=== PATIENT | female | born 1965 | race Hispanic/Latino ===

== ENCOUNTER 2017-12-23 21:31 | Emergency (ER) | payer BC ==
[2017-12-23 22:58] LABS: BASOPHILS % (AUTO) 0.8 % (0.0-5.0); EOSINOPHILS % (AUTO) 0.8 % (0.0-8.0); HEMATOCRIT 42.9 % (36-48); LYMPHOCYTES % (AUTO) 17.7 % (21.0-51.0); MEAN CORPUSCULAR HEMOGLOBIN 29.3 pg (27.0-33.0); MEAN CORPUSCULAR HGB CONC 35.1 g/dL (32.0-36.0); MEAN CORPUSCULAR VOLUME 83.4 fL (79-99); MONOCYTES % (AUTO) 12.5 % (3.0-13.0); NEUTROPHILS % (AUTO) 68.2 % (40.0-77.0); NUCLEATED RED BLOOD CELLS 0.1 % (0.0-0.19); PLATELET COUNT (AUTO) 240 K/uL (130-400); RED BLOOD CELL COUNT(AUTO) 5.15 MIL/uL (4.00-5.50); RED CELL DISTRIBUTION WIDTH 14.1 % (11.0-15.5); WHITE BLOOD COUNT (AUTO) 9.4 K/uL (4.8-10.8)
[2017-12-23 22:59] LABS: POTASSIUM 3.9 mmol/L (3.5-5.1)
[2017-12-23 23:04] LABS: ALBUMIN 3.6 g/dL (3.5-5.0); BILIRUBIN,TOTAL 1.2 mg/dL (0.2-1.0); TOTAL PROTEIN, SERUM 8.5 g/dL (6.0-8.3)
[2017-12-23] MEDS ORDERED: ONDANSETRON HCL 4 MG/2 ML VIAL ONE (23:05)
[2017-12-23] MEDS ORDERED: SODIUM CHLORIDE 0.9% 1000ML 1,000 ML IV ONE (23:05)
[2017-12-23] MEDS ORDERED: MORPHINE SULFATE 2 MG/ML 1ML SYG ONE ×2 (23:06→23:31)
[2017-12-23] MEDS ORDERED: ISOVUE-370 50ML VIAL IV ONE (23:20)
== END 2017-12-24 01:18 | disposition home or self-care (01) ==
LOC: EDH 21:31
DX: L03.221 Cellulitis of neck (principal); L03.211 Cellulitis of face; K04.7 Periapical abscess without sinus; E11.9 Type 2 diabetes mellitus without complications; I10 Essential (primary) hypertension; Z90.710 Acquired absence of both cervix and uterus; Z98.890 Other specified postprocedural states; Z88.8 Allergy status to other drugs, medicaments and biological substances
CPT/HCPCS: 36415; 70491; 80053; 83605; 85025; 85651; 86141; 87040; 96361; 96374; 96375; 96376; 99285; J2405; J7030; Q9967

== ENCOUNTER 2021-08-06 12:46 | Inpatient (IN) | payer BC ==
[~2021-08-06] VITALS: Ht 162.6 cm; Wt 100.7 kg
[2021-08-06] MEDS ORDERED: NITROGLYCERIN 2 MG VIAL IV ONE (13:58)
[2021-08-06] MEDS ORDERED: HEPARIN 10,000 UNIT/10ML (1,000 UNIT/ML) VIAL ONE (13:58)
[2021-08-06] MEDS ORDERED: IOHEXOL-350 50ML VIAL IV ONE (13:58)
[2021-08-06] MEDS ORDERED: BIVALIRUDIN 250 MG/VIAL IV ONE (13:58)
[2021-08-06] MEDS ORDERED: LIDOCAINE HCL 400MG/20ML VIAL ONE (13:59)
[2021-08-06] MEDS ORDERED: IOHEXOL 350 MG/ML 100ML INFUS..BTL IV ONE (13:59)
[2021-08-06 14:18] VITALS: BP 195/58
[2021-08-06] MEDS ORDERED: FENTANYL CITRATE PF 50 MCG/1 ML 2ML VIAL ONE (14:18)
[2021-08-06] MEDS ORDERED: MIDAZOLAM HCL 1 MG/ML 2ML VIAL ONE (14:18)
[2021-08-06] MEDS ORDERED: AMLODIPINE 5 MG TAB PO STA (15:01)
[2021-08-06] MEDS ORDERED: HYDRALAZINE 20MG/ML VIAL IV PRN (15:30)
[2021-08-06] MEDS ORDERED: CLONIDINE HCL 0.1 MG TABLET PO PRN (15:30)
[2021-08-06] MEDS ORDERED: ONDANSETRON 4MG INJ IV PRN (16:00)
[2021-08-06] MEDS ORDERED: ACETAMINOPHEN 325 MG TAB PO PRN ×2 (16:00)
[2021-08-06] MEDS ORDERED: LACTULOSE 20 GM/30 ML UDCUP PO PRN (16:00)
[2021-08-06] MEDS: INSULIN HUMULIN R 100 UNIT/ML 3ML SQ SCH ×2 (16:30→20:19)
[2021-08-06] MEDS: LOSARTAN 100 MG TABLET PO SCH (17:45)
[2021-08-06 19:49] VITALS: BP 164/86
[2021-08-06] MEDS: FAMOTIDINE 20MG TAB PO SCH (20:30)
[2021-08-06 23:28] VITALS: BP 156/60
[2021-08-07 03:51] VITALS: BP 128/53
[2021-08-07] MEDS: INSULIN HUMULIN R 100 UNIT/ML 3ML SQ SCH ×2 (06:07→11:30)
[2021-08-07] MEDS ORDERED: REGADENOSON 0.4 MG/5 ML PF SYG IVP SCH (07:00)
[2021-08-07 07:45] VITALS: BP 157/58
[2021-08-07] MEDS: FAMOTIDINE 20MG TAB PO SCH (09:50)
[2021-08-07] MEDS: LOSARTAN 100 MG TABLET PO SCH (09:50)
[2021-08-07 11:21] VITALS: BP 190/64
[2021-08-07] MEDS ORDERED: AMLODIPINE 5 MG TAB PO ONE (11:30)
[2021-08-07] MEDS ORDERED: AMLODIPINE 5 MG TAB PO SCH (11:45)
[2021-08-07] MEDS ORDERED: AMLO5TAB4 PO (14:58)
[2021-08-07] MEDS ORDERED: LOSA100T2 PO (14:58)
== END 2021-08-07 14:30 | disposition home or self-care (01) | DRG 310 ==
LOC: 4AH 12:46
PROVIDERS: ADMIT Internal Medicine; ATTEND Internal Medicine
DX: R00.1 Bradycardia, unspecified (principal); I11.9 Hypertensive heart disease without heart failure; E11.9 Type 2 diabetes mellitus without complications; Z90.711 Acquired absence of uterus with remaining cervical stump; Z83.3 Family history of diabetes mellitus; Z82.49 Family history of ischemic heart disease and other diseases of the circulatory system
CPT/HCPCS: 36415; 78452; 80061; 82550; 82948; 83874; 84484; 93005; 93017; 96374; A9500; G0378; J0583; J1644; J2250; J2785; J3010; J3490; Q9967